=== PATIENT | female | born 1965 | race Caucasian/White ===

== ENCOUNTER 2017-03-30 19:25 | Inpatient (IN) | payer OTHER ==
[2017-03-30] MEDS ORDERED: Heparin for STEMI(*) 5,000 UNITS/ML 1 ML VIAL IV ONE (19:28)
[2017-03-30] MEDS ORDERED: NS 0.9% 1000 ML* 1,000 ML IV ONE (19:28)
[2017-03-30] MEDS ORDERED: Ticagrelor* 90 MG TAB PO ONE (19:29)
[2017-03-30] MEDS ORDERED: Ondansetron INJ* 2 MG/ML VIAL IV ONE (19:32)
[2017-03-30] MEDS ORDERED: Ondansetron INJ* 2 MG/ML VIAL ONE ×2 (19:33→20:02)
[2017-03-30] MEDS ORDERED: Midazolam* 1 MG/ML 5 ML VIAL (5 MG) ONE (19:37)
[2017-03-30] MEDS ORDERED: fentaNYL* 50 MCG/ML 2 ML VIAL (100 MCG VIAL) ONE (19:37)
[2017-03-30] MEDS ORDERED: Heparin 2 UNITS/ML IVPREMIX* 3,000 ML IV ONE (19:37)
[2017-03-30] MEDS ORDERED: nitroGLYCERIN DRIP* 250 ML ONE (19:37)
[2017-03-30] MEDS ORDERED: Iohexol 350 (CONTRAST) 200 ML MDV IV ONE (19:37)
[2017-03-30] MEDS ORDERED: Lidocaine 1% INJ* 10 MG/ML 30 ML SDV ONE (19:37)
[2017-03-30] MEDS ORDERED: Midazolam* 1 MG/ML 2 ML VIAL (2 MG) ONE (19:38)
[2017-03-30 19:41] LABS: Hematocrit 39 % (35-47); Hemoglobin 13.2 g/dl (12.0-16.0); Mean Corpuscular HGB Conc 34 g/dl (31-36); Mean Corpuscular Hemoglobin 32 pg (27-31); Mean Corpuscular Volume 94 fL (80-97); Mean Platelet Volume 8 um3 (7.4-10.4); Red Blood Count 4.17 10^6/ul (4.0-5.4); Red Cell Distribution Width 13 % (10.5-15)
[2017-03-30] MEDS ORDERED: Bivalirudin(*) 250 MG VIAL ONE (19:41)
[2017-03-30] MEDS ORDERED: Midazolam* 1 MG/ML 2 ML VIAL (2 MG) IV ONE (19:53)
[2017-03-30 19:55] LABS: Albumin 3.6 g/dL (3.2-5.2); BUN/Creatinine Ratio 15.2 (8-20); Calcium 8.3 mg/dL (8.6-10.3); EGFR African American 83.1 (>60); EGFR Non-African American 64.6 (>60); Globulin 2.6 g/dL (2-4); Total Bilirubin 0.3 mg/dL (0.2-1.0); Total Protein 6.2 g/dL (6.4-8.9)
[2017-03-30 19:56] LABS: Potassium 3.4 mmol/L (3.5-5.0)
[2017-03-30 19:58] LABS: Troponin I 0.01 ng/mL (<0.04)
[2017-03-30] MEDS ORDERED: Atropine SYRINGE* 0.1 MG/ML 10 ML SYRINGE (1 MG) ONE (20:17)
[2017-03-30] MEDS ORDERED: Nitroglycerin TAB 0.4 MG* 0.4 MG TAB SL PRN (20:58)
[2017-03-30] MEDS ORDERED: NS 0.9% 1000 ML* 1,000 ML IV SCH (21:00)
[2017-03-30] MEDS ORDERED: Acetaminophen TAB* 325 MG PO PRN (21:03)
[2017-03-30] MEDS ORDERED: Zolpidem TAB* 5 MG PO PRN (21:03)
[2017-03-30] MEDS ORDERED: fentaNYL* 50 MCG/ML 2 ML VIAL (100 MCG VIAL) IV PRN (21:03)
[2017-03-30] MEDS ORDERED: Norepinephrine 16MCG/ML IVPRE* 4,000 MCG/250 ML BAG IV ONE (21:07)
[2017-03-30] MEDS ORDERED: Rosuvastatin (NF) 20 MG TAB PO SCH (22:00)
[2017-03-30] MEDS ORDERED: LORazepam TAB(*) 0.5 MG PO PRN (22:31)
[2017-03-30] MEDS: CMCS: Simvastatin TAB(NF) 20 MG TAB PO SCH (22:59)
[2017-03-30] MEDS: Metoprolol Succinate XL TAB* 25 MG PO SCH (22:59)
[2017-03-31 00:24] LABS: Troponin I 7.93 ng/mL (<0.04)
[2017-03-31] MEDS: oxyCODONE/Acetamin 5/325 MG* TAB PO PRN ×2 (00:29→21:27)
--- NOTE | 2017-03-31 01:10 | HP ---
CC: Isak Skaggs MD, [place], [place], * HISTORY AND PHYSICAL: DATE OF ADMISSION: 03/30/17 CHIEF COMPLAINT: The patient with chest pressure and acute ST segment elevation inferior wall myocardial infarction. HISTORY OF PRESENT ILLNESS: The patient is a 51-year-old female with no prion known cardiac history. Specifically, she denies any history of myocardial infarction, congestive heart failure, or significant heart rhythm disturbance. She states that yesterday, she was out in the heat and over did it, said she was feeling somewhat under the weather, she felt kind of nauseous at times and thought she may have had a heatstroke. Starting around 4 p.m., she started noticing a chest pressure with some nauseousness and mild shortness of breath. It continued getting worse and eventually, she sought medical attention by calling the ambulance. The ambulance made the diagnosis of an acute ST segment elevation inferior myocardial infarction and called a STEMI alert into [facility]. On the patient's arrival in the ER, she still had persistent symptoms and was in moderate distress. EKG demonstrated continued ST segment elevation inferior GA with reciprocal changes in I, aVL, and V1 through V5, and the patient had already received by the time of my arrival 4000 units of heparin , full dose aspirin at 325 mg, and 180 mg of Brilinta orally. The risks and benefits of cardiac catheterization and emergent intervention were explained to her. She understood them and wished to proceed. Risks factors for coronary artery disease included a positive family history with a parent in their 50s with their first heart attack. She has a 30 plus year history of smoking. She has hyperlipidemia and apparently has intolerance to statins and only take simvastatin on a jvzuowiq-hrs-wns-tolerate-it basis. She denies any history of diabetes or hypertension. She is not morbidly obese. PAST MEDICAL HISTORY: Includes hyperlipidemia and anxiety for which she is on lorazepam. REVIEW OF SYSTEMS: With respect to proceeding emergently to PCI procedure, the patient denied any history of stroke or TIA, any history of hematemesis, hematuria, hemoptysis. She has no known allergies to contrast agents and has no history of renal insufficiency. She has no significant bleeding tendencies. PHYSICAL EXAMINATION GENERAL: Revealed a white female, in moderate distress. VITAL SIGNS: Blood pressure 126/89, pulse 80, respirations 16, O2 saturation 100% on room air. NECK: Supple without increased JVP. Carotid had good upstroke and volume. I could not appreciate bruits, although she did not hold her breath well for long periods. CHEST: Clear to A and P with no active rales, rhonchi, or wheezes. HEART: Revealed no visible heaves, no palpable heaves or thrills. Regular rate and rhythm was noted with occasional sinus pause from sinus arrhythmia and Wenckebach'ing in the face of her acute inferior GA. ABDOMEN: Soft, nontender. I did not appreciate organomegaly. EXTREMITIES: Without clubbing, cyanosis, or jose pitting edema. Peripheral pulses intact. Femoral pulse present without bruit. NEUROLOGIC: The patient is alert and oriented with normal mentation. MUSCULOSKELETAL: The patient moves all extremities appropriately. PSYCHOLOGICAL: The patient with appropriate affect for current situation. DIAGNOSTIC STUDIES/LABORATORY DATA: EKG revealed sinus rhythm, heart rate 84. ST segment elevation in II, III, and aVF with marked ST segment depression in aVL, I and V1 through V5. ASSESSMENT: Acute inferoposterior wall myocardial infarction, perhaps as old as 3 hours old at the time of arrival in the emergency room. The recommendations are acute intervention with primary PCI if possible. Risks and benefits were explained. She understood them and wished to proceed. As mentioned earlier, she had already received heparin 4000 per protocol, 325 mg of aspirin, Brilinta 180 mg orally. Further management will be made pending results of the cardiac catheterization. [id number] #: [id number] MTDD
[2017-03-31] MEDS ORDERED: NS 0.9% 1000 ML* 1,000 ML IV SCH (02:00)
--- NOTE | 2017-03-31 02:55 | ED ---
I, Oh,Soohyun, scribed for Lon Laboy MD on 03/30/17 at 1939 . HPI Chest Pain - HPI Summary HPI Summary: This 51 y/o female presents to ED via ALS ambulance for acute onset of CP since 2 hours ago. STEMI was called en route at ETA 15 minutes out and at 1907 PM. EKG en route at 1859 PM was reviewed and noted with ST elevation at V2-3, avF and reciprocal changes at 1 avL, V1, V2, V4, and V5. Time of arrival at 1922 PM. Pt has been given 1 NS and 1 ASA by EMS. EMT reports HR between 50-70, blood pressure of 130/82, and oxygen sat of 96 % on RA. Positive SOB, nausea and dry heaving. PMHx is negative for KS or PUD, but positive for "irregular heartrate" per pt. Primary care involves Dr. Coleman as her lining setter in [place], [place]. Pt is current smoker. - History of Current Complaint Hx Obtained From: Patient Onset/Duration: Started Hours Ago - 2 hours ago Timing: Constant Chest Pain Location: Diffuse Chest Pain Radiates To:: Arm - LUE Character: Dull/Aching Aggravating Factor(s): Nothing Alleviating Factor(s): Nothing Associated Signs and Symptoms: Positive: Chest Pain, Shortness of Breath, Nausea , Other: - dry heaving. Negative: Fever PMH/Surg Hx/FS Hx/Imm Hx Cardiovascular History: Reports: Other Cardiovascular Problems/Disorders - unspecified "irregular HR" per pt. Denies: Hx Myocardial Infarction GI History: Denies: Hx Gastroesophageal Reflux Disease - Family History Known Family History: Positive: Cardiac Disease - Social History Hx Substance Use: No Substance Use Type: Reports: None Hx Tobacco Use: Yes Smoking Status (MU): Current Every Day Smoker Review of Systems Positive: Skin Diaphoresis. Negative: Fever Positive: Chest Pain Positive: Shortness Of Breath Positive: Nausea, Other - dry heave All Other Systems Reviewed And Are Negative: Yes Physical Exam - Summary Physical Exam Summary: The patient is well-nourished in no moderate distress and in no acute pain. The skin is diaphoretic. HEENT: The head is normocephalic and atraumatic. The pupils are equal and reactive. The conjunctivae are clear and without drainage. Nares are patent and without drainage. Mouth reveals moist mucous membranes and the throat is without erythema and exudate. The external ears are intact. The ear canals are patent and without drainage. The tympanic membranes are intact. Neck is supple with full range of motion and non-tender. There are no carotid bruits. There is no neck vein distension. Respiratory: Chest is non-tender. Lungs are clear to auscultation and breath sounds are symmetrical and equal. Cardiovascular: Hear is regular rate and rhythm. There is no murmur or rub auscultated. There is no peripheral edema and pulses are symmetrical and equal. Pt is noted with acute inferior KS. Abdomen: The abdomen is soft and non-tender. There are normal bowel sounds heard in all four quadrants and there is no organomegaly palpated. Musculoskeletal: There is no back pain noted. Extremities are non-tender with full range of motion. There is good capillary refill. There is no peripheral edema or calf tenderness elicited. Neurological: Patient is alert and oriented to person, place and time. The patient has symmetrical motor strength in all four extremities. Cranial nerves are grossly intact. Deep tendon reflexes are symmetrical and equal in all four extremities. Psychiatric: The patient has an appropriate affect and does not exhibit any anxiety or depression. Triage Information Reviewed: Yes Vital Signs On Initial Exam: Initial Vitals Temp Pulse Resp BP Pulse Ox 97.4 F 80 16 126/89 100 03/30/17 19:25 03/30/17 19:25 03/30/17 19:25 03/30/17 19:25 03/30/17 19:25 Vital Signs Reviewed: Yes Diagnostics - Vital Signs Vital Signs Temp Pulse Resp BP Pulse Ox 03/30/17 19:40 75 13 139/93 100 03/30/17 19:33 81 15 126/89 100 03/30/17 19:25 97.4 F 80 16 126/89 100 - Laboratory Lab Results: Lab Results 03/30/17 03/30/17 03/30/17 Range/Units 19:30 19:30 19:30 WBC 10.0 (3.5-10.8) 10^3/ul RBC 4.17 (4.0-5.4) 10^6/ul Hgb 13.2 (12.0-16.0) g/dl Hct 39 (35-47) % MCV 94 (80-97) fL MCH 32 H (27-31) pg MCHC 34 (31-36) g/dl RDW 13 (10.5-15) % Plt Count 250 (150-450) 10^3/ul MPV 8 (7.4-10.4) um3 Neut % (Auto) 53.8 (38-83) % Lymph % (Auto) 36.3 (25-47) % [place] % (Auto) 6.6 (1-9) % Eos % (Auto) 2.2 (0-6) % Baso % (Auto) 1.1 (0-2) % Absolute Neuts (auto) 5.4 (1.5-7.7) 10^3/ul Absolute Lymphs (auto) 3.6 (1.0-4.8) 10^3/ul Absolute Monos (auto) 0.7 (0-0.8) 10^3/ul Absolute Eos (auto) 0.2 (0-0.6) 10^3/ul Absolute Basos (auto) 0.1 (0-0.2) 10^3/ul Absolute Nucleated RBC 0.03 10^3/ul Nucleated RBC % 0.3 INR (Anticoag Therapy) 0.94 (0.89-1.11) APTT > 212.0 H* (26.0-36.3) seconds Sodium 138 (133-145) mmol/L Potassium 3.4 L (3.5-5.0) mmol/L Chloride 109 (101-111) mmol/L Carbon Dioxide 21 L (22-32) mmol/L Anion Gap 8 (2-11) mmol/L BUN 14 (6-24) mg/dL Creatinine 0.92 (0.51-0.95) mg/dL Est GFR ( Amer) 83.1 (>60) Est GFR (Non-Af Amer) 64.6 (>60) BUN/Creatinine Ratio 15.2 (8-20) Glucose 124 H (70-100) mg/dL Lactic Acid (0.5-2.0) mmol/L Calcium 8.3 L (8.6-10.3) mg/dL Total Bilirubin 0.30 (0.2-1.0) mg/dL AST 69 H (13-39) U/L ALT 39 (7-52) U/L Alkaline Phosphatase 69 (34-104) U/L Total Creatine Kinase 101 (10-223) U/L CK-MB (CK-2) 1.5 (0.6-6.3) ng/mL Troponin I 0.01 (<0.04) ng/mL B-Natriuretic Peptide ( - 100) pg/mL Total Protein 6.2 L (6.4-8.9) g/dL Albumin 3.6 (3.2-5.2) g/dL Globulin 2.6 (2-4) g/dL Albumin/Globulin Ratio 1.4 (1-3) LDL Cholesterol Direct 113 mg/dL 03/30/17 03/30/17 Range/Units 19:30 19:30 WBC (3.5-10.8) 10^3/ul RBC (4.0-5.4) 10^6/ul Hgb (12.0-16.0) g/dl Hct (35-47) % MCV (80-97) fL MCH (27-31) pg MCHC (31-36) g/dl RDW (10.5-15) % Plt Count (150-450) 10^3/ul MPV (7.4-10.4) um3 Neut % (Auto) (38-83) % Lymph % (Auto) (25-47) % [place] % (Auto) (1-9) % Eos % (Auto) (0-6) % Baso % (Auto) (0-2) % Absolute Neuts (auto) (1.5-7.7) 10^3/ul Absolute Lymphs (auto) (1.0-4.8) 10^3/ul Absolute Monos (auto) (0-0.8) 10^3/ul Absolute Eos (auto) (0-0.6) 10^3/ul Absolute Basos (auto) (0-0.2) 10^3/ul Absolute Nucleated RBC 10^3/ul Nucleated RBC % INR (Anticoag Therapy) (0.89-1.11) APTT (26.0-36.3) seconds Sodium (133-145) mmol/L Potassium (3.5-5.0) mmol/L Chloride (101-111) mmol/L Carbon Dioxide (22-32) mmol/L Anion Gap (2-11) mmol/L BUN (6-24) mg/dL Creatinine (0.51-0.95) mg/dL Est GFR ( Amer) (>60) Est GFR (Non-Af Amer) (>60) BUN/Creatinine Ratio (8-20) Glucose (70-100) mg/dL Lactic Acid 2.1 H* (0.5-2.0) mmol/L Calcium (8.6-10.3) mg/dL Total Bilirubin (0.2-1.0) mg/dL AST (13-39) U/L ALT (7-52) U/L Alkaline Phosphatase (34-104) U/L Total Creatine Kinase (10-223) U/L CK-MB (CK-2) (0.6-6.3) ng/mL Troponin I (<0.04) ng/mL B-Natriuretic Peptide 9 ( - 100) pg/mL Total Protein (6.4-8.9) g/dL Albumin (3.2-5.2) g/dL Globulin (2-4) g/dL Albumin/Globulin Ratio (1-3) LDL Cholesterol Direct mg/dL Result Diagrams: 03/30/17 19:30 03/30/17 19:30 Lab Statement: Any lab studies that have been ordered have been reviewed, and results considered in the medical decision making process. - EKG 1916 EKG Interpretation: ST elevation at V2-3, avF and reciprocal changes at 1 avL, V1, V2, V4, and Chest Pain Course/Dx - Course Assessment/Plan: This 51 y/o female presents to ED for acute onset of KS. STEMI was called 1907 PM, LEVEL VIAL MARKER when pt was 15 ETA. Both EKG upon arrival and en route were noted with STEMI and reciprocal changes. Dr. Castro was consulted at 1911, and pt was admitted for further cardiac workup. No critical care time for this patient. Pt was in ED room for 23 minutes. - Chest Pain Differential Diagnosis/HQI/PQRI: Acute KS, ACS, Angina - Diagnoses Provider Diagnoses: STEMI (ST elevation myocardial infarction) During the Visit The Following Alert/Code Occurred: STEMI - at 1907 PM - Provider Notifications Discussed Care Of Patient With: Jorge Luis Castro Time Discussed With Above Provider: 19:12 Instructed by Provider To: Admit As Inpatient Discharge - Discharge Plan Condition: Stable Disposition: ADMITTED TO [facility] The documentation as recorded by the scribeJean Claude Soohyun accurately reflects the service I personally performed and the decisions made by me, Lon Laboy MD.
[2017-03-31 06:26] LABS: Hematocrit 38 % (35-47); Hemoglobin 12.7 g/dl (12.0-16.0); Mean Corpuscular HGB Conc 33 g/dl (31-36); Mean Corpuscular Hemoglobin 31 pg (27-31); Mean Corpuscular Volume 95 fL (80-97); Mean Platelet Volume 8 um3 (7.4-10.4); Red Blood Count 4.06 10^6/ul (4.0-5.4); Red Cell Distribution Width 13 % (10.5-15); White Blood Count 7.9 10^3/ul (3.5-10.8)
[2017-03-31] MEDS: Ticagrelor* 90 MG TAB PO SCH ×2 (06:36→20:23)
[2017-03-31 06:42] LABS: Albumin 3.5 g/dL (3.2-5.2); BUN/Creatinine Ratio 14.1 (8-20); Calcium 8.6 mg/dL (8.6-10.3); EGFR African American 112.1 (>60); EGFR Non-African American 87.1 (>60); Globulin 2.5 g/dL (2-4); HDL Cholesterol 36.9 mg/dL; Potassium 4.3 mmol/L (3.5-5.0); Total Bilirubin 0.4 mg/dL (0.2-1.0)
[2017-03-31 07:00] LABS: Troponin I 12.08 ng/mL (<0.04)
[2017-03-31] MEDS ORDERED: Perflutren Lipid Microsphere* 3 ML VIAL ONE (07:53)
[2017-03-31] MEDS: Aspirin Low Dose CHEW TAB* 81 MG PO SCH (09:16)
--- NOTE | 2017-03-31 10:39 | ECHO ---
Patient: YANET NORTON [facility] Rec#: [id number] : 1965 Date: 03/31/2017 Age: 51y Height: 157.48 cm / 62.0 in Weight: 68.04 kg / 150.0 lbs Sex: F BSA: 1.69 Room#: ICU 1 Admit Date#: 03/30/2017 Type: Inpatient Referring: Jorge Luis Castro MD Reading: Ramon Nj MD Resident Program Specialist: Darlene AsencioRDCS,RDMS Transthoracic Echocardiogram Indication: STEMI BP: 99/65 HR: 52 Rhythm: Bradycardia Findings History: S/P STEMI and PCI. HLD, breast cancer Technical Comments: The study quality is fair. Completed 1010 Left Ventricle: The left ventricular chamber size is normal. There is no left ventricular hypertrophy. The estimated ejection fraction is 55-60%. Normal left ventricular diastolic filling is observed. The basal inferior wall segment is hypokinetic (score 2). Overall wallmotion score index is 2.00 Left Atrium: The left atrial chamber size is normal. Right Ventricle: The right ventricle wall thickness is moderately increased. The right ventricular cavity size is normal. The right ventricular global systolic function is normal. Right Atrium: The right atrial cavity size is normal. Aortic Valve: The aortic valve is trileaflet. The aortic valve leaflets are mildly thickened. There is a trace of aortic regurgitation. There is no evidence of aortic stenosis. Mitral Valve: The mitral valve leaflets appear normal. There is a trace of mitral regurgitation. There is no evidence of mitral stenosis. Tricuspid Valve: The tricuspid valve leaflets are normal. There is trace tricuspid regurgitation. Unable to estimate the right ventricular systolic pressure. Pulmonic Valve: There is no evidence of pulmonic valve thickening. There is a trace pulmonic regurgitation. Pericardium: There is no significant pericardial effusion. Aorta: The aortic root appears normal. There is no dilatation of the aortic arch. Pulmonary Artery: The main pulmonary artery is not well visualized. Venous: The inferior vena cava appears normal in size. There is a greater than 50% respiratory change in the inferior vena cava dimension. Contrast: Definity was used to optimize study. A total of 5 ml was used Summary: There was not any prior study for comparison. Conclusions There is no left ventricular hypertrophy. The estimated ejection fraction is 55-60%. The basal inferior wall segment is hypokinetic (score 2). The right ventricular global systolic function is normal. There is a trace of aortic regurgitation. There is no evidence of aortic stenosis. There is a trace of mitral regurgitation. There is trace tricuspid regurgitation. Unable to estimate the right ventricular systolic pressure. There is no significant pericardial effusion. Measurements Name Value Normal Range RVIDd (AP) 2D 1.7 cm (0.9 - 2.6) RVDdMajor (2D) 2.1 cm (2.2 - 4.4) RAd ISD 4CH 4.3 cm (3.4 - 4.9) RA (A4C)W 3.7 cm (2.9 - 4.6) IVSd (2D) 0.9 cm (0.6 - 1) LVPWd (2D) 1 cm (0.6 - 1) LVIDd (2D) 4.6 cm (3.6 - 5.4) LVIDs (2D) 3.8 cm - LV FS (2D) 18 % (25 - 45) Aortic Annulus 2.1 cm (1.4 - 2.6) Ao root diameter (2D) 2.7 cm (2.1 - 3.5) Ascending Ao 2.6 cm (2.1 - 3.4) Aortic arch 2.6 cm (1.8 - 3.4) LA dimension (AP) 2D 2.4 cm (2.3 - 3.8) LAd ISD 4CH 4.7 cm (2.9 - 5.3) LA ISD 4CH W 2.8 cm (2.5 - 4.5) Name Value Normal Range LA ESV SP 4CH (A/L) 32.14 ml - LA ESV SP 4CH (MOD) 27.91 ml - Name Value Normal Range MV E-wave Vmax 0.7 m/sec - MV deceleration time 219 msec - MV A-wave Vmax 0.5 m/sec - MV E:A ratio 1.4 ratio - P. vein S-wave Vmax 0.5 m/sec - P. vein D-wave Vmax 0.3 m/sec - P. vein S:D Vmax ratio 1.6 ratio - P. vein A-wave duration 134 msec - LV septal e' Vmax 0.06 m/sec - LV lateral e' Vmax 0.07 m/sec - LV E:e' septal ratio 12 ratio - LV E:e' lateral ratio 10 ratio - Name Value Normal Range AV Vmax 1.3 m/sec - AV VTI 26 cm - AV peak gradient 7 mmHg - AV mean gradient 2.6 mmHg - LVOT Vmax 0.9 m/sec - LVOT VTI 18.6 cm - LVOT peak gradient 3.2 mmHg - LVOT mean gradient 1.6 mmHg - DEIDRA Vmax 0.5 m/sec - Name Value Normal Range RAP 8 mmHg - IVC diameter 2.2 cm - Name Value Normal Range PV Vmax 0.5 m/sec - PV peak gradient 1 mmHg - Wallmotion BAS Not Seen BA Not Seen BAL Not Seen LAKSHMI Not Seen BI Hypokinetic BIS Not Seen MAS Not Seen MA Not Seen MAL Not Seen MIL Not Seen MN Not Seen MIS Not Seen Not Seen AA Not Seen AL Not Seen AI Not Seen APEX Not Seen
[2017-03-31] MEDS: Metoprolol Succinate XL TAB* 25 MG PO SCH ×2 (11:09→20:58)
--- NOTE | 2017-03-31 11:30 | CATH ---
CC: Isak Skaggs MD, [address] [place] [id number], FAX [phone] * CARDIAC CATHETERIZATION AND INTERVENTIONAL REPORT: DATE OF PROCEDURE: 03/30/17 INDICATION FOR PROCEDURE: The patient presents with an acute ST-segment elevation inferoposterior wall myocardial infarction. PROCEDURE: Coronary arteriography, primary stenting utilizing a 2.5 mm x 16 mm long Synergy drug-eluting stent in mid LAD overlapped proximally with a 3.5 mm x 16 mm long Synergy drug-eluting stent, postdilated to 3.7 mm in the proximal and mid portion with the 2.5 mm stent dilated to 2.8 to 2.85 mm in the distal portion, left heart catheterization, left ventriculography. DESCRIPTION OF PROCEDURE: The patient was interviewed and examined in the emergency room, where the risks and benefits were explained. The patient understood them and wished to proceed. She had already received 4000 units of heparin and 180 mg of Brilinta and full dose 325 mg of aspirin. She was brought to the cardiovascular laboratory where a formal time-out was performed. The patient was prepped and draped in the sterile fashion. The right groin area was anesthetized with 1% lidocaine. Right femoral artery was cannulated and a 6.5- Bahraini Merit sheath was placed. Coronary arteriography for the left coronary artery was performed utilizing a 5-Bahraini FL4 curved diagnostic catheter. The right coronary artery was injected utilizing a 6-Bahraini ART-4 side-hole guide catheter. ACT was checked and found to be subtherapeutic and as such an Angiomax bolus was given and Angiomax drip started. A 0.014 All- Star wire was advanced down the right coronary artery at the point of critical obstruction with a 95% blockage visualized after wire placement. A 2.5 mm x 16 mm long Synergy drug-eluting stent was deployed with post-deployment inflations made to 2.8 mm to 2.85 mm utilizing high pressure with a 2.75 mm x 12 mm long NC Emerge balloon. Of note, the patient had transient hypotension requiring Levophed boluses. Intracoronary nitroglycerin was given at times to assess for possible spasm and to further assess the true size of the vessel. Fluid bolus was given as well to support blood pressure. Following this, because of a more proximal tapering of the artery, the mid stent was overlapped more proximally with a 3.5 mm x 16 mm long Synergy drug-eluting stent post dilated to 3.65 mm to 3.7 mm within that stent and in the beginning portion of the 2.5 mm stent into the mid segment of the right coronary artery. Following this, the artery was assessed in multiple views. Left heart catheterization was then performed utilizing a 5-Bahraini pigtail catheter advanced to the ascending aorta. The catheter was then passed across the aortic valve into the left ventricle where left ventricular pressure was recorded. Left ventriculography was performed utilizing a total of 24 cc of Omnipaque dye at a rate of 12 cc per second. The catheter was pulled back across the aortic valve to recheck gradient. At the end of the case, the catheter was removed and the sheath was sutured in place to be removed manually in the intensive care unit. The total contrast used was 140 cc of Omnipaque dye. The radiation exposure included 10.3 minutes of fluoro time. The air kerma radiation was 529 mGy. The DAP radiation was 3857 microgray per meter squared. RESULTS: HEMODYNAMIC DATA: Left heart catheterization - central aortic pressure recorded at 100/68 with a mean of 85, left ventricular pressure 98 over left ventricular end- diastolic pressure of 20. LEFT VENTRICULOGRAPHY (PERFORMED AFTER INTERVENTION): Performed in the NOWAK projection revealed iptd-[id number] hypokinesis of the inferior wall with preservation of the anterior wall, overall ejection fraction difficult to estimate, but appeared to be 40% to 45%. No significant mitral regurgitation was identified. CORONARY ARTERIOGRAPHY: A. Left coronary artery. 1. Left main - short in nature with no significant disease. 2. Left anterior descending artery. There is no significant disease seen throughout the course of the left anterior descending artery with a mild 20 % narrowing seen in the mid portion after the first septal race starter. The second diagonal branch was a small caliber bifurcating artery. The artery traversed toward the apical region, but not well on to the apex or into the distal inferior wall. 3. Circumflex artery - a nondominant vessel supplying a mid obtuse marginal branch followed by continuation to a low-lying posterior left ventricular branch. No significant obstruction was seen throughout its course. B. Right coronary artery - totally occluded in its proximal portion. On placement of the wire, a critical dissected mid 95% lesion was noted. The distal vessel branches appeared to have some global mild spasm, which abated with intracoronary nitroglycerin. INTERVENTION INTO [id number] RIGHT CORONARY ARTERY: Successful reconstitution of totally occluded right coronary artery with stent placement of a 2.5 mm x 16 mm long Synergy drug-eluting stent, postdilated to 2.8 to 2.85 initially with observance of a more proximal tapering of this vessel into the area of the mid stent with a 50% lesion just at the beginning of the mid stent, successfully treated with an overlapping 3.5 mm x 16 mm long drug-eluting stent, which was post dilated to 3.6 mm to 3.65 mm in the proximal portion of this stent into the proximal portion of the 2.5 mm stent with SERENA-3 flow, no dissection seen, and less than 5% residual narrowing. OVERALL ASSESSMENT: Mild/ubht-kn-zksqdgsi left ventricular systolic dysfunction with EF of 40% involving wuol-xf-zeljbdhf inferior wall hypokinesis. Significant coronary artery disease with totally occluded mid right coronary artery with dissected appearance with narrowing more proximally, treated with primary stenting as described above. The patient will be maintained on dual-antiplatelet therapy with Brilinta and aspirin for at least 18 months with consideration for longer depending underlying risk factors. Aggressive risk factor management will be attempted, although the patient states she has a significant allergy to statins with significant muscle aching. If absolutely no statin can be tolerated, consideration may have to be made toward newer subcutaneous antihyperlipidemic agents if insurance will cover this. The patient, unfortunately, is a chronic smoker and this will need to be addressed, most likely on discharge through her family doctor. [id number]/CPS #: [id number] DANISH
[2017-03-31 12:57] LABS: Troponin I 6.01 ng/mL (<0.04)
[2017-03-31] MEDS: CMCS: Simvastatin TAB(NF) 20 MG TAB PO SCH (17:07)
[2017-03-31] MEDS: Docusate CAP* 100 MG PO PRN (17:13)
[2017-04-01] MEDS: Metoprolol Succinate XL TAB* 25 MG PO SCH ×2 (09:12→20:26)
[2017-04-01] MEDS: Aspirin Low Dose CHEW TAB* 81 MG PO SCH (09:12)
[2017-04-01] MEDS: Ticagrelor* 90 MG TAB PO SCH ×2 (09:13→20:25)
[2017-04-01] MEDS: CMCS: Simvastatin TAB(NF) 20 MG TAB PO SCH (17:17)
[2017-04-01] MEDS: oxyCODONE/Acetamin 5/325 MG* TAB PO PRN (20:24)
[2017-04-01] MEDS: Docusate CAP* 100 MG PO PRN (20:25)
[2017-04-02] MEDS ORDERED: Metoprolol Succinate XL TAB* 50 MG PO SCH (09:00)
[2017-04-02] MEDS: Ticagrelor* 90 MG TAB PO SCH (09:32)
[2017-04-02] MEDS: Aspirin Low Dose CHEW TAB* 81 MG PO SCH (09:32)
[2017-04-02 12:05] VITALS: BP 99/62
--- NOTE | 2017-04-03 01:00 | DS ---
CC: Isak Skaggs MD; Ari Jensen MD * DISCHARGE SUMMARY: DATE OF ADMISSION: 03/30/17 DATE OF DISCHARGE: 04/02/17 PRIMARY FUNDING ANALYST: Dr. Isak Skaggs in [place], [place]. His fax number is [phone]. DISCHARGE DIAGNOSES: 1. Inferior wall ST segment elevation infarct. 2. Tobacco use. 3. Hyperlipidemia. 4. Anxiety 5. History of statin intolerance. CONDITION ON DISCHARGE: Improved. PROCEDURES: Cardiac cath, stent placement RCA, 2.5 x 16 and 3.5 x 16 proximal overlapping drug-eluting stents with Dr. Castro 03/30/17, telemetry. DISCHARGE MEDICATIONS: 1. Toprol XL 50 mg daily. 2. Nitroglycerin 0.4 sublingual p.r.n. 3. Zocor 20 mg daily. 4. Brilinta 90 mg b.i.d. 5. Aspirin 81 mg daily. ACTIVITY: No strenuous exertion for 1 week, to walk briskly 30 minutes daily. Wound care shower only for 2 more days. DIET: Low fat, low cholesterol. FOLLOWUP: With Dr. Skaggs, she will call his office and make a followup appointment for next week if possible. HISTORY: See H and P. LABORATORY DATA: Post PCI, CBC remained stable with a hemoglobin of 12.7. Post PCI, BMP on the 12th, creatinine 0.71. Her troponin peaked at 12.08, CPK- MB at 63.5 consistent with a small infarct. Her LDL on occasional Zocor was 116 with cholesterol of 181, triglycerides of 142, HDL 36.9. Her BNP was normal at 9. Her electrocardiogram on the day of discharge, 04/02/17, shows sinus rhythm at 70 with inferior T-wave inversion without Q waves, and slight V4 through V6 nonspecific ST depression. QTc is 493 milliseconds. HOSPITAL COURSE: She presented with an inferior wall ST elevation infarct, follows with a tent finisher in [place]. She underwent emergent catheterization by Dr. Castro with finding of a culprit RCA, proximal occlusion , received 2 drug- eluting stents. See the report for details. LV gram showed [id number] mid inferior hypokinesis with an EF of 40% to 45%. This is presumably mostly stunned as her enzymes peaked at a low level. Postprocedure, her labs remained stable. EKG did not develop Q waves. She developed inferior T-wave inversion. She is ambulatory, has not had any groin problems, has not had angina, heart failure symptoms. She has had rare PVCs with rare couplets on telemetry. On the day of discharge, she is ambulating 2 laps at a time without any issues. Her right groin is stable, her vitals are stable, her cardiac exam and lungs are unremarkable. Her groin is normal. She received full discharge instruction. She will stay in [place] for a few more days, will get her prescription filled here and then transfer it to her home pharmacy in [place]. She will call her tent finisher and make a followup appointment for next week if possible. She received full discharge instructions. [id number]/[facility] #: [id number] DANISH
== END 2017-04-02 15:18 | disposition home or self-care (01) | DRG 174 ==
LOC: ED 19:25 → CHICATH 19:52 → ICU 20:56 → MEDTELE 03-31 12:16
PROVIDERS: ADMIT Internal Medicine Cardiovascular Disease; ATTEND Internal Medicine Cardiovascular Disease
PROC: 3E03317 Introduction of Other Thrombolytic into Peripheral Vein, Percutaneous Approach (ICD-10-PCS; 2017-03-30)
PROC: B2111ZZ Fluoroscopy of Multiple Coronary Arteries using Low Osmolar Contrast (ICD-10-PCS; 2017-03-30)
PROC: 4A023N7 Measurement of Cardiac Sampling and Pressure, Left Heart, Percutaneous Approach (ICD-10-PCS; 2017-03-30)
PROC: B2151ZZ Fluoroscopy of Left Heart using Low Osmolar Contrast (ICD-10-PCS; 2017-03-30)
PROC: 3E033XZ Introduction of Vasopressor into Peripheral Vein, Percutaneous Approach (ICD-10-PCS; 2017-03-30)
PROC: 027035Z Dilation of Coronary Artery, One Artery with Two Drug-eluting Intraluminal Devices, Percutaneous Approach (ICD-10-PCS; principal; 2017-03-30 15:00)
DX: I21.11 ST elevation (STEMI) myocardial infarction involving right coronary artery (principal); I95.9 Hypotension, unspecified; I25.10 Atherosclerotic heart disease of native coronary artery without angina pectoris; E78.5 Hyperlipidemia, unspecified; F41.9 Anxiety disorder, unspecified; F17.200 Nicotine dependence, unspecified, uncomplicated; T46.6X5A Adverse effect of antihyperlipidemic and antiarteriosclerotic drugs, initial encounter; I49.3 Ventricular premature depolarization; Z82.49 Family history of ischemic heart disease and other diseases of the circulatory system; Z79.82 Long term (current) use of aspirin; Z79.02 Long term (current) use of antithrombotics/antiplatelets
CPT/HCPCS: 36415; 80053; 80061; 82550; 82553; 83605; 83721; 83880; 84484; 85025; 85610; 85730; 86703; 87641; 93005; 93306; A9270-GY; C1725; C1769; C1876; C1887; C9606-RC; J0461; J1644; J2001; J2250; J2405; J3010